=== PATIENT | male | born 1985 | race Hispanic/Latino ===

== ENCOUNTER 2019-03-31 01:46 | Emergency (ER) | payer BC, OTHER, SELFPAY ==
[2019-03-31] MEDS ORDERED: FENTANYL CITR 100 MCG/2 ML ONE (01:52)
[2019-03-31] MEDS ORDERED: HYDROMORPHONE HCL 0.5 MG/0.5 ML INJ ONE ×2 (02:41→03:10)
--- NOTE | 2019-03-31 03:20 | ER ---
Nurse's Notes [facility] Name: Kit Vaca Age: 33 yrs Sex: Male : 1985 Arrival Date: 03/31/2019 Time: 01:48 Bed 2 Private MD: Diagnosis: Contusion of right foot Presentation: 03/31 01:49 Presenting complaint: EMS states: for report of crush injury to right foot from quan bb outrigger (foot). Care prior to arrival: Medication(s) given: fentanyl 100 mcg IV initiated. 20 GA, in the left antecubital area. Mechanism of Injury: Crush injury from quan- outrigger. Trauma event details: Injury occurred in the [facility], Injury occurred: at work Injury occurred: March 31, 2019. 01:49 Acuity: POLINA 3 bb 01:49 Method Of Arrival: EMS: [facility] 01:54 Transition of care: patient was not received from another setting of care. Onset of bb symptoms was March 31, 2019. Risk Assessment: Do you want to hurt yourself or someone else? Patient reports no desire to harm self or others. Initial Sepsis Screen: Does the patient meet any 2 criteria? No. Patient's initial sepsis screen is negative. Does the patient have a suspected source of infection? No. Patient's initial sepsis screen is negative. Trauma Activation: Alert Physician: ED Physician; Name: Sukumar; Notified At: 01:40; Arrived At: 01:40 Physician: General Surgeon; Name: ; Notified At: 01:40; Arrived At: Physician: Radiology; Name: Izaiah Sarmiento; Notified At: 01:40; Arrived At: 01:42 Physician: Respiratory; Name: ; Notified At: 01:40; Arrived At: Physician: Lab; Name: ; Notified At: 01:40; Arrived At: Historical: - Allergies: 01:54 NKA; bb - Home Meds: 01:54 None [Active]; bb - PMHx: 01:54 testicular cancer; bb - PSHx: 01:54 ACL; testicle removed; jaw/cheek; right hand; bb - Immunization history: Last tetanus immunization: unknown. - Coronavirus screen:: The patient has NOT traveled to [place], [place], or [place] in the past 14 days. Proceed with normal triage process as indicated. - Social history:: Smoking status: Patient denies any tobacco usage or history of. - Ebola Screening: : No symptoms or risks identified at this time. Screenin:48 Abuse screen: Denies threats or abuse. Denies injuries from another. Nutritional aa1 screening: No deficits noted. Tuberculosis screening: No symptoms or risk factors identified. Fall Risk IV access (20 points). Primary Survey: 01:51 NO uncontrolled hemorrhage observed. A: The patient is alert. Airway: patent, No aa1 supplemental oxygen in use on arrival. Breathing/Chest: Respiratory pattern: regular, Respiratory effort: spontaneous, unlabored. Circulation: Pulses: palpable right radial artery and left radial artery. Skin color: pink, Skin temperature: warm. Disability Alert. Exposure/Environment: There is no evidence of uncontrolled external bleeding. Obvious injury(ies) are noted at this time: crush injury to R foot with swelling and erythema noted to dorsum. 02:51 Reassessment Airway Airway Patent Breathing/Chest Respiratory pattern Regular aa1 Respiratory effort Spontaneous Unlabored Circulation Color Tye Temperature Warm Disability Alert. Secondary Survey: 01:51 HEENT: No deficits noted. Gastrointestinal: No deficits noted. : No signs and/or aa1 symptoms were reported regarding the genitourinary system. Musculoskeletal: Circulation, motion, and sensation intact. Capillary refill < 3 seconds, Range of motion: intact in all extremities, Swelling present in right foot. 01:51 Injury Description: Crush injury sustained to right foot was sustained 30-60 minutes aa1 ago. Assessment: 01:48 General: Appears in no apparent distress. comfortable, Behavior is calm, cooperative, aa1 appropriate for age. Pain: Complains of pain in right foot Pain currently is 9 out of 10 on a pain scale. Quality of pain is described as sharp, throbbing, Pain began suddenly, Is continuous, Aggravated by repositioning. Neuro: Level of Consciousness is awake, alert, obeys commands, Oriented to person, place, time, situation, Moves all extremities. Respiratory: Airway is patent Respiratory effort is even, unlabored, Respiratory pattern is regular, symmetrical. GI: No signs and/or symptoms were reported involving the gastrointestinal system. : No signs and/or symptoms were reported regarding the genitourinary system. EENT: No signs and/or symptoms were reported regarding the EENT system. Derm: Skin is intact, is healthy with good turgor, Skin is pink, warm \T\ dry. Musculoskeletal: Circulation, motion, and sensation intact. Capillary refill < 3 seconds, Range of motion: intact in all extremities, Swelling present in instep of right foot and dorsum of right foot. 02:45 Reassessment: Patient appears in no apparent distress at this time. Patient and/or aa1 family updated on plan of care and expected duration. Pain level reassessed. Patient is alert, oriented x 3, equal unlabored respirations, skin warm/dry/pink. Awaiting x-ray results. 03:10 Reassessment: Patient appears in no apparent distress at this time. Patient is alert, aa1 oriented x 3, equal unlabored respirations, skin warm/dry/pink. Pt reports his foot is starting to hurt again after changing angles for the splint; MD notified. 03:45 Reassessment: Patient appears in no apparent distress at this time. Patient is alert, aa1 oriented x 3, equal unlabored respirations, skin warm/dry/pink. Discussed d/c \T\ f/u instructions with pt; denies questions or concerns at this time. Vital Signs: 01:49 BP 127 / 87; Pulse 84; Resp 14 S; Temp 99.1; Pulse Ox 98% on R/A; Weight 72.57 kg (R); bb Height 5 ft. 9 in. (175.26 cm) (R); Pain 9/10; 02:45 BP 132 / 80; Pulse 71; Resp 16; Temp 98.8; Pulse Ox 100% on R/A; Pain 5/10; aa1 03:45 BP 126 / 81; Pulse 72; Resp 16; Temp 98.6; Pulse Ox 98% on R/A; Pain 5/10; aa1 01:49 Body Mass Index 23.63 (72.57 kg, 175.26 cm) bb [place] Coma Score: 01:49 Eye Response: spontaneous(4). Verbal Response: oriented(5). Motor Response: obeys bb commands(6). Total: 15. 01:51 Eye Response: spontaneous(4). Verbal Response: oriented(5). Motor Response: obeys aa1 commands(6). Total: 15. 02:45 Eye Response: spontaneous(4). Verbal Response: oriented(5). Motor Response: obeys aa1 commands(6). Total: 15. 03:45 Eye Response: spontaneous(4). Verbal Response: oriented(5). Motor Response: obeys aa1 commands(6). Total: 15. Trauma Score (Adult): 01:49 Eye Response: spontaneous(1); Verbal Response: oriented(1); Motor Response: obeys bb commands(2); Systolic BP: > 89 mm Hg(4); Respiratory Rate: 10 to 29 per min(4); Kelly Score: 15; Trauma Score: 12 01:51 Eye Response: spontaneous(1); Verbal Response: oriented(1); Motor Response: obeys aa1 commands(2); Systolic BP: > 89 mm Hg(4); Respiratory Rate: 10 to 29 per min(4); [place] Score: 15; Trauma Score: 12 ED Course: 01:48 Patient arrived in ED. aa1 01:48 Berenice Bonilla, RN is Primary Nurse. aa1 01:48 Patient has correct armband on for positive identification. Bed in low position. Call aa1 light in reach. Pulse ox on. NIBP on. 01:48 Maintain EMS IV. Dressing intact. Site clean \T\ dry. Gauge \T\ site: 20g LAC. aa 1 01:49 Patient maintains SpO2 saturation greater than 95% on room air. bb 01:51 Patient maintains SpO2 saturation greater than 95% on room air. aa1 01:52 Triage completed. bb 01:54 Arm band placed on. bb 01:57 Adam Patino MD is Attending Physician. tw4 02:00 Thermoregulation: warm blanket given to patient. aa1 02:14 Foot Right 3 View XRAY In Process Unspecified. EDMS 03:07 Orthoglass splint: Posterior short lleg splint applied on right leg. oe 03:18 Jorge Correa MD is Referral Physician. tw4 03:45 No provider procedures requiring assistance completed. IV discontinued, intact, aa1 bleeding controlled, No redness/swelling at site. Pressure dressing applied. Crutch training done. Administered Medications: 01:59 CANCELLED (Duplicate Order): fentaNYL (PF) 100 mcg IVP once; RASS on ADMIN: Combtv4, jd3 Very Agttd3, Agttd2, Rstlss1, AlertClm0, Drwsy-1, Lt Sdtn-2, Mod Sdtn-3, Dp Sdtn-4, UnArsble-5 02:00 Drug: fentaNYL (PF) 100 mcg Route: IVP; Site: left antecubital; jd3 02:42 Follow up: Response: No adverse reaction; Pain is unchanged, physician notified aa1 02:03 Not Given (Patient Refused): Zofran 4 mg IVP once; over 2 minutes jd3 02:42 Drug: Dilaudid 0.5 mg Route: IVP; Site: left antecubital; aa1 03:00 Follow up: Response: No adverse reaction; Pain is decreased aa1 03:11 Drug: Dilaudid 0.5 mg Route: IVP; Site: left antecubital; aa1 03:51 Follow up: Response: No adverse reaction; Pain is decreased aa1 Intake: 01:49 PO: 0ml; Total: 0ml. bb 01:51 IV: 500ml (IV Fluid); Total: 500ml. aa1 Outcome: 03:18 Discharge ordered by . tw4 03:45 Discharged to home via wheelchair, with crutches, with friend. aa1 03:45 Condition: good 03:45 Discharge instructions given to patient, Instructed on discharge instructions, follow up and referral plans. medication usage, crutch walking, Demonstrated understanding of instructions, follow-up care, medications, crutch walking, splint care, Prescriptions given X 3. 03:45 Patient's length of stay was not longer than 2 hours. aa1 03:53 Patient left the ED. aa1 Signatures: Dispatcher [employer] EDMS Berenice Bonilla RN RN aa1 Gina Mendez RN RN bb Edilberto Allen Jonathon RN RN Adam Velazco MD MD tw4
--- NOTE | 2019-03-31 03:21 | EDPHYS ---
Physician Documentation [facility] Name: Kit Vaca Age: 33 yrs Sex: Male : 1985 Arrival Date: 03/31/2019 Time: 01:48 Bed 2 Private MD: ED Physician Adam Patino HPI: 03/31 02:07 This 33 yrs old Male presents to ER via EMS with complaints of Crush Injury To tw4 Foot. 02:07 The patient presents with a crush injury, from a heavy object. The complaints affect tw4 the right foot. Context: The problem was sustained at work, resulted from a heavy object falling, Mechanism of Injury: Unknown the patient is not able to bear weight, the patient is not able to ambulate. Onset: The symptoms/episode began/occurred just prior to arrival. Modifying factors: The symptoms are alleviated by nothing, the symptoms are aggravated by nothing. Associated signs and symptoms: The patient has no apparent associated signs or symptoms. The patient has not experienced similar symptoms in the past. Historical: - Allergies: :54 NKA; bb - Home Meds: :54 None [Active]; bb - PMHx: 01:54 testicular cancer; bb - PSHx: 01:54 ACL; testicle removed; jaw/cheek; right hand; bb - Immunization history: Last tetanus immunization: unknown. - Coronavirus screen:: The patient has NOT traveled to [place], [place], or [place] in the past 14 days. Proceed with normal triage process as indicated. - Social history:: Smoking status: Patient denies any tobacco usage or history of. - Ebola Screening: : No symptoms or risks identified at this time. ROS: 02:07 MS/extremity: Positive for injury or acute deformity, decreased range of motion, pain, tw4 tenderness, of the dorsum of right foot. 02:07 Constitutional: Negative for fever, chills, and weight loss, Eyes: Negative for injury, pain, redness, and discharge, Cardiovascular: Negative for chest pain, palpitations, and edema, Respiratory: Negative for shortness of breath, cough, wheezing, and pleuritic chest pain, Abdomen/GI: Negative for abdominal pain, nausea, vomiting, diarrhea, and constipation, Back: Negative for injury and pain. 02:07 MS/extremity: Positive for injury or acute deformity, pain. Exam: 02:07 Constitutional: This is a well developed, well nourished patient who is awake, alert, tw4 and in no acute distress. Head/Face: Normocephalic, atraumatic. Chest/axilla: Normal chest wall appearance and motion. Nontender with no deformity. No lesions are appreciated. Cardiovascular: Regular rate and rhythm with a normal S1 and S2. No gallops, murmurs, or rubs. Normal PMI, no JVD. No pulse deficits. Respiratory: Lungs have equal breath sounds bilaterally, clear to auscultation and percussion. No rales, rhonchi or wheezes noted. No increased work of breathing, no retractions or nasal flaring. Abdomen/GI: Soft, non-tender, with normal bowel sounds. No distension or tympany. No guarding or rebound. No evidence of tenderness throughout. Back: No spinal tenderness. No costovertebral tenderness. Full range of motion. 02:07 Musculoskeletal/extremity: Extremities: noted in the dorsum of right foot: pain, ROM: limited active range of motion, limited passive range of motion, Pulses: Sensation intact. Severe pain noted. Compartment Syndrome exam of affected extremity: no numbness, no tingling, no sensation deficit, no palor, no weak pulses, severe pain. Vital Signs: 01:49 BP 127 / 87; Pulse 84; Resp 14 S; Temp 99.1; Pulse Ox 98% on R/A; Weight 72.57 kg (R); bb Height 5 ft. 9 in. (175.26 cm) (R); Pain 9/10; 02:45 BP 132 / 80; Pulse 71; Resp 16; Temp 98.8; Pulse Ox 100% on R/A; Pain 5/10; aa1 03:45 BP 126 / 81; Pulse 72; Resp 16; Temp 98.6; Pulse Ox 98% on R/A; Pain 5/10; aa1 01:49 Body Mass Index 23.63 (72.57 kg, 175.26 cm) bb [place] Coma Score: 01:49 Eye Response: spontaneous(4). Verbal Response: oriented(5). Motor Response: obeys bb commands(6). Total: 15. 01:51 Eye Response: spontaneous(4). Verbal Response: oriented(5). Motor Response: obeys aa1 commands(6). Total: 15. 02:45 Eye Response: spontaneous(4). Verbal Response: oriented(5). Motor Response: obeys aa1 commands(6). Total: 15. 03:45 Eye Response: spontaneous(4). Verbal Response: oriented(5). Motor Response: obeys aa1 commands(6). Total: 15. Trauma Score (Adult): 01:49 Eye Response: spontaneous(1); Verbal Response: oriented(1); Motor Response: obeys bb commands(2); Systolic BP: > 89 mm Hg(4); Respiratory Rate: 10 to 29 per min(4); Kelly Score: 15; Trauma Score: 12 01:51 Eye Response: spontaneous(1); Verbal Response: oriented(1); Motor Response: obeys aa1 commands(2); Systolic BP: > 89 mm Hg(4); Respiratory Rate: 10 to 29 per min(4); [place] Score: 15; Trauma Score: 12 MDM: 01:57 Patient medically screened. tw4 03:16 Differential diagnosis: fracture, sprain. Data reviewed: vital signs, nurses notes. tw4 Data interpreted: Pulse oximetry: Interpretation: normal. Counseling: I had a detailed discussion with the patient and/or guardian regarding: the historical points, exam findings, and any diagnostic results supporting the discharge/admit diagnosis, radiology results. Medication response: morphine markedly relieved the patient's pain. Symptoms have improved. Response to treatment: and as a result, I will discharge patient. Special discussion: I discussed with the patient/guardian in detail that at this point there is no indication for admission to the hospital. It is understood, however, that if the symptoms persist or worsen the patient needs to return immediately for re-evaluation. 02 01:59 Order name: Foot Right 3 View XRAY tw4 Administered Medications: 01:59 CANCELLED (Duplicate Order): fentaNYL (PF) 100 mcg IVP once; RASS on ADMIN: Combtv4, jd3 Very Agttd3, Agttd2, Rstlss1, AlertClm0, Drwsy-1, Lt Sdtn-2, Mod Sdtn-3, Dp Sdtn-4, UnArsble-5 02:00 Drug: fentaNYL (PF) 100 mcg Route: IVP; Site: left antecubital; jd3 02:42 Follow up: Response: No adverse reaction; Pain is unchanged, physician notified aa1 02:03 Not Given (Patient Refused): Zofran 4 mg IVP once; over 2 minutes jd3 02:42 Drug: Dilaudid 0.5 mg Route: IVP; Site: left antecubital; aa1 03:00 Follow up: Response: No adverse reaction; Pain is decreased aa1 03:11 Drug: Dilaudid 0.5 mg Route: IVP; Site: left antecubital; aa1 03:51 Follow up: Response: No adverse reaction; Pain is decreased aa1 Disposition: 03/31/19 03:18 Discharged to Home. Impression: Contusion of right foot. - Condition is Stable. - Discharge Instructions: Foot Contusion, [id number]. - Prescriptions for Ibuprofen 800 mg Oral Tablet - take 1 tablet by ORAL route every 8 hours As needed take with food; 30 tablet. Tylenol- Codeine #3 300-30 mg Oral Tablet - take 2 tablet by ORAL route every 6 hours As needed; 30 tablet. Tramadol 50 mg Oral Tablet - take 1 tablet by ORAL route every 8 hours as needed; 12 tablet. - Medication Reconciliation Form, Thank You Letter, Antibiotic Education, Prescription Opioid Use form. - Follow up: Jorge Correa MD; When: Upon discharge from the Emergency Department; Reason: If symptoms return, Recheck today's complaints, Continuance of care, Re-evaluation by your physician. Follow up: Private Physician; When: Upon discharge from the Emergency Department; Reason: If symptoms return, Recheck today's complaints, Continuance of care, Re-evaluation by your physician. - Problem is new. - Symptoms have improved. Signatures: Dispatcher [employer] EDMS Berenice Bonilla RN RN aa1 Gina Mendez RN RN Benigno Milton RN RN jd3 Adam Patino MD MD tw4 Corrections: (The following items were deleted from the chart) 01:59 01:58 fentaNYL (PF) 100 mcg IVP once; RASS on ADMIN: Combtv4, Very Agttd3, Agttd2, jd3 Rstlss1, AlertClm0, Drwsy-1, Lt Sdtn-2, Mod Sdtn-3, Dp Sdtn-4, UnArsble-5 ordered. jd3 03:53 03:18 03/31/2019 03:18 Discharged to Home. Impression: Contusion of right foot. aa1 Condition is Stable. Forms are Medication Reconciliation Form, Thank You Letter, Antibiotic Education, Prescription Opioid Use. Follow up: Jorge Correa; When: Upon discharge from the Emergency Department; Reason: If symptoms return, Recheck today's complaints, Continuance of care, Re-evaluation by your physician. Follow up: Private Physician; When: Upon discharge from the Emergency Department; Reason: If symptoms return, Recheck today's complaints, Continuance of care, Re-evaluation by your physician. Problem is new. Symptoms have improved. tw4
[2019-03-31 04:01] VITALS: BP 126/81; TEMP 98.6; O2SAT 98
--- NOTE | 2019-03-31 07:51 | RAD REPORT ---
EXAM DESCRIPTION: RAD - Foot Right 3 View - 03/31/2019 2:14 am CLINICAL HISTORY: Right foot pain status post injury FINDINGS: No fracture or dislocation is seen
== END 2019-03-31 03:53 | disposition home or self-care (01) ==
LOC: ER 01:46
DX: S90.31XA Contusion of right foot, initial encounter (principal); W22.8XXA Striking against or struck by other objects, initial encounter; Y93.9 Activity, unspecified; Y92.89 Other specified places as the place of occurrence of the external cause; Y99.8 Other external cause status; Z85.47 Personal history of malignant neoplasm of testis
CPT/HCPCS: 96374; 96375; 99284; J1170; J3010